=== PATIENT | male | born 1980 | race Caucasian/White ===

== ENCOUNTER 2020-12-28 07:32 | Day surgery (SDC) | payer BC ==
[~2020-12-28] VITALS: Ht 165.1 cm; Wt 113.0 kg
[~2020-12-28 07:32] MED LIST: ACETAMINOPHEN 500 MG TABLET PO PRN; BUPIVACAINE-EPI 0.25%-1:200000 MPF 30 ML VIAL. ONE; HYDROmorphone 2 MG/ML VIAL IVP PRN; IV RINGERS,LACTATED 1000ML 1,000 ML IV SCH; MORPHINE SULFATE 2 MG/ML INJ. IVP PRN; PROCHLORPERAZINE 10 MG/2 ML VIAL. IVP PRN; SUGAMMADEX SODIUM 200 MG/2 ML VIAL. IVP ONE; fentaNYL PF VIAL 100 MCG/2 ML VIAL IVP PRN
[2020-12-28 08:00] VITALS: BP 139/66
[2020-12-28] MEDS ORDERED: SCOPOLAMINE 1.5MG PATCH. TD ONE (08:15)
[2020-12-28] MEDS ORDERED: PROPOFOL 10 MG/ML (20ML) VIAL. IV ONE (08:26)
[2020-12-28] MEDS ORDERED: LIDOCAINE 2% PF 5 ML VIAL. ONE (08:26)
[2020-12-28] MEDS ORDERED: KETOROLAC 30 MG/ML VIAL. ONE ×2 (08:27→09:41)
[2020-12-28] MEDS ORDERED: ONDANSETRON PF 4 MG/2 ML VIAL. ONE (08:27)
[2020-12-28] MEDS ORDERED: DEXAMETHASONE SOD PHOS 4 MG/ML VIAL ONE (08:27)
[2020-12-28] MEDS ORDERED: ROCURONIUM 50 MG/5 ML VIAL. ONE (08:28)
[2020-12-28] MEDS ORDERED: fentaNYL PF VIAL 100 MCG/2 ML VIAL ONE (08:29)
[2020-12-28] MEDS ORDERED: MIDAZOLAM HCL/PF 2 MG/2 ML VIAL. ONE (08:30)
[2020-12-28] MEDS ORDERED: BUPIVACAINE-EPI 0.25%-1:200000 MPF 30 ML VIAL. INJ ONE (09:48)
[2020-12-28] MEDS ORDERED: GLYCOPYRROLATE 1 MG/5 ML VIAL. ONE (09:52)
[2020-12-28] MEDS ORDERED: ePHEDrine PF IN SALINE 50 MG/10 ML SYRINGE. IV ONE (09:56)
--- NOTE | 2020-12-28 10:14 | PDOC4 ---
Operative Note Operative Note Date: December 282020 at 1011 Preoperative diagnosis: Biliary dyskinesia gallbladder polyp Postoperative diagnosis: Same Procedure: Laparoscopic cholecystectomy with fluorescein cholangiography Surgeon: Tito Specimen: Gallbladder Dictation: Patient is a 40-year-old male with complaints of right upper quadrant abdominal pain ultrasound showing gallbladder polyp. Procedure of laparoscopic cholecystectomy was explained to the patient detail risk benefits were also discussed including bleeding infection injury to intra-abdominal contents possible necessitating further open operations alternatives this procedure also discussed with patient who seemed to understand and gave a verbal written consen t to have the procedure performed. Patient was taken to the operating room placed in supine position general anesthesia was initiated once patient was sleeping intubated his abdomen was prepped and draped usual sterile fashion using ChloraPrep. An area just below the umbilicus was injected with quarter percent Marcaine with epinephrine incision was made 11 blade scalpel and a gayathri ies needle was placed within the abdomen creating pneumoperitoneum once this was completely millimeter port was placed and a 5 mm camera is placed within the abdomen which was inspected no other abnormalities were noted. 5 mm port was placed in the epigastrium a 5 mm port was placed in the right midabdomen and 5 mm ports placed in right lateral abdomen all under direct visualization. The dome of the gallbladder is grasped retracted cephalad the infundibulum the gallbladder is grasped retracted laterally quite a bit of adhesions to the gallbladder these were taken down electrocautery opposing the triangle the other here tissues of the triangle were taken down with blunt dissection exposing the cystic duct and cystic artery fluorescein cholangiography was visualized which showed fluorescein within the cystic duct and common duct with no evidence of obstruction. The cystic duct was doubly clipped and transected the cystic artery was also clipped and transected the gallbladder is taken off the liver with hook electrocautery placed in Endo Catch bag moving the umbilicus right upper quadrant was irrigated and suctioned dry hemostasis deemed be appropriate the pneumoperitoneum was reduced all ports were removed the fascial defect at the umbilicus was closed with a [id number] 0 Vicryl suture and the skin was reapproximated all port sites for subcuticular Monocryl Mastisol Steri-Strips and island dressings were applied. Patient was awakened and extubated in the operating room taken to recovery in stable condition all sponge instrument needle counts listed as correct estimated blood loss 10 mL. MERON SWANN MD Dec 28, 2020 10:14
--- NOTE | 2020-12-28 10:15 | DISCH ---
DISCHARGE INSTRUCTIONS Condition on Discharge Condition on Discharge: Stable Activity After Discharge Activity Instructions for Disc: Avoid exertion Other activity instructions: No lifting more than 20 pounds for 2-week Diet after Discharge Diet after Discharge: Low Fat Wound Incision Care Other wound/incision instructi: Martine brewer 24-hour Contacting the after DC Call your doctor for: If your condition worsens Follow-Up Follow up with: Dr. Swann in 2 weeks MERON SWANN MD Dec 28, 2020 10:15
[2020-12-28] MEDS ORDERED: OXYC-325 PO (10:16)
[2020-12-28] MEDS: fentaNYL PF VIAL 100 MCG/2 ML VIAL IVP PRN ×2 (10:42→11:13)
[2020-12-28] MEDS ORDERED: oxyCODONE/APAP 5/325 1 TAB TABLET PO ONE ×3 (10:45→11:15)
[2020-12-28 11:34] VITALS: BP 113/74
--- NOTE | 2021-01-02 20:15 | PATHOLOGY ---
[facility] [place] Accession Number: [id number] . 01 Material submitted: . gallbladder - GALLBLADDER AND CONTENTS . 01 Clinical history: . GALLBLADDER POLYP LAP CHOLECYSTECTOMY . 02 Diagnosis: Gallbladder, excision: - Mild chronic cholecystitis; negative for malignancy. - Please see comment. . Lymph node, pericystic duct region: - Focal lipogranulomatous inflammation. (MLK:[facility]; 01/01/2021) QTP 01/02/2021 1924 Local . 02 Comment: The clinical history of a gallbladder polyp is noted. There is no gross or histologic evidence of a polypoid structure within the gallbladder. Please correlate clinically. (K:[facility]; 01/01/2021) . 02 Electronically signed: . Jose Hayes MD, Pathologist NPI- [id number] . 01 Gross description: . Fixative: Formalin Labeled: Gallbladder and contents Specimen received: Intact Dimensions: 7.4 x 3.6 x 2.7 cm Serosa: Smooth, yellow-green with a roughened hepatic bed Lymph node: Yes measuring 0.4 x 0.4 x 0.3 cm Mucosa: Velvety, green-brown Average wall thickness: 0.4 cm Calculi: No Abnormalities: A loosely attached barreto polyp (0.3 x 0.3 x 0.2 cm) is present and appears confined to the mucosa ([facility]; 12/31/2020) A1- Mercury Purifier body, fundus, lymph node and the cystic duct margin(inked black). ([facility]; 12/29/2020) A2: polyp, entirely submitted ([facility]; 12/31/2020) GZA/GZA 12/31/2020 1423 Local . 02 Pathologist provided ICD-10: K81.1 . 02 CPT . 819227 Specimen Comment: A courtesy copy of this report has been sent to [phone], [phone] Specimen Comment: [id number] Specimen Comment: Report sent to ,DR CROWE Specimen Comment: A duplicate report has been generated due to demographic updates. Performed at: [facility] [address] [id number] MD Lalito Christopher MD Phone: [phone] Performed at: [facility] [address] [id number] MD Darryl Hogue MD Phone: [phone]
== END 2020-12-28 13:00 | disposition home or self-care (01) ==
LOC: SURG 07:32
PROVIDERS: ATTEND Surgery
DX: K82.8 Other specified diseases of gallbladder (principal); K82.4 Cholesterolosis of gallbladder; F41.9 Anxiety disorder, unspecified; Z79.899 Other long term (current) drug therapy; Z98.890 Other specified postprocedural states; Z72.89 Other problems related to lifestyle
CPT/HCPCS: 47563; J0690; J1100; J1885; J2405; J2704; J3010; J3490; 88304; A4657; A4930; J2250